=== PATIENT | male | born 2000 | race Caucasian/White ===

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

== ENCOUNTER 2021-02-08 10:03 | Outpatient (REF) | payer MEDICAID, SELFPAY ==
[2021-02-09 11:24] LABS: COVID-19 RT-PCR UVMMC Result Negative (Negative)
== END 2021-02-08 10:04 | disposition home or self-care (01) ==
LOC: LBN 10:03
PROVIDERS: PCP Pediatrics; Visit Provider Physician Assistant Medical
DX: J02.9 Acute pharyngitis, unspecified (principal); Z20.822 Contact with and (suspected) exposure to COVID-19
CPT/HCPCS: 87077; U0003; 87070